=== PATIENT | male | born 1945 | race Hispanic/Latino ===

== ENCOUNTER 2018-02-04 16:30 | Emergency (ER) | payer MEDICARE ==
[2018-02-04] MEDS ORDERED: ATIVAN IV ONE (17:14)
--- NOTE | 2018-02-04 17:19 | Emergency Department Report ---
ED Altered Mental Status HPI - General Chief Complaint: Altered Mental Status Stated Complaint: LEWY/DEPPRESSION/VIOLENCE Time Seen by Provider: 02/04/18 16:50 Source: family Mode of arrival: Ambulatory Limitations: Altered Mental Status - History of Present Illness Initial Comments: 72-year-old man with history of progressive Alzheimer's disease over the past several years, is brought in for evaluation of altered mental status, with recent first institutionalization at a memory care facility for progression of confusion, with placement in one facility approximately 10 days ago, lasting for about 7 days, and be removed because of increased confusion behavior, which is incompatible with acceptable standard for facility. Patient also had a fall , at that time, with injury to chest, and was evaluated twice several days ago at [facility], with concern for rib injury or chest injury, and had multiple CT scans, according to , who gives entirety of history, requiring intravenous sedation with lorazepam, does not recall that he had any brain scans. Patient has been placed at a [facility] several days ago, which can handle patients with behavioral problems, but patient's confusion has progressed from a point of verbal insults and increased confusion, to where he spontaneously took his shirt off at a common room in the facility today, and placed it over the head of another resident. was instructed to bring patient to the emergency department and to have mental health evaluation. is unclear about intent of referral for patient here other than decreasing behavior, and possibly for alterations of medications. is not aware of any falls, and all exams and [facility] several days ago were unremarkable. Current medication list shows Namenda, Lexapro, gabapentin, pravastatin, amlodipine. reports that patient had previously been on clonazepam, 0.25 to 0.5 mg TID prn. But this had been discontinued at the request of the previous emergency facility visit several days ago, and does not believe that he has been on clonazepam since that time. - Related Data Previous Rx's Medication Instructions Recorded Last Taken Type clonazePAM [Clonazepam] 0.5 mg PO TID PRN #90 tablet 02/04/18 Unknown Rx Allergies Allergy/AdvReac Type Severity Reaction Status Date / Time No Known Allergies Allergy Verified 02/04/18 17:50 ED Review of Systems ROS: Stated complaint: LEWY/DEPPRESSION/VIOLENCE Other details as noted in HPI Comment: Unobtainable due to pts medical conditions Constitutional: denies: chills, fever Cardiovascular: denies: chest pain Gastrointestinal: denies: abdominal pain ED Past Medical Hx - Past Medical History Previous Medical History?: Yes Hx Hypertension: Yes Additional medical history: Dementia - Surgical History Past Surgical History?: No - Social History Smoking Status: Never Smoker Substance Use Type: None - Medications Home Medications: Home Medications Medication Instructions Recorded Confirmed Last Taken Type clonazePAM [Clonazepam] 0.5 mg PO TID PRN #90 tablet 02/04/18 Unknown Rx ED Physical Exam - General Limitations: Altered Mental Status General appearance: alert, other (confused, mildly agitated secondary to confusion, not aggressive or abusive) - Head Head exam: Present: atraumatic, normocephalic, other (nontender) - Eye Eye exam: Present: PERRL - ENT ENT exam: Present: mucous membranes moist - Neck Neck exam: Present: normal inspection, full ROM. Absent: tenderness - Respiratory Respiratory exam: Present: normal lung sounds bilaterally. Absent: respiratory distress, wheezes, rales, rhonchi, chest wall tenderness (left lower chest wall , area of prior injury and concern, nontender, no ecchymosis) - Cardiovascular Cardiovascular Exam: Present: regular rate, normal rhythm, normal heart sounds - GI/Abdominal GI/Abdominal exam: Present: soft, normal bowel sounds. Absent: tenderness, guarding, rebound - Rectal Rectal exam: Present: deferred - Extremities Exam Extremities exam: Present: normal inspection, full ROM, other (contusion left posterior elbow, no bony defect, no deformity, full range of motion). Absent: tenderness - Neurological Exam Neurological exam: Present: alert, altered (awake and alert, responds to name, but grossly confused otherwise). Absent: motor sensory deficit - Psychiatric Psychiatric exam: Present: agitated (confused) - Skin Skin exam: Present: warm, dry, intact ED Course Vital Signs 02/04/18 16:34 Temperature 37.1 C Pulse Rate 96 H Respiratory 18 Rate Blood Pressure 106/40 O2 Sat by Pulse 97 Oximetry - Reevaluation(s) Reevaluation #1: 02/04/18 20:41 patient became confused, agitated and combative at attempts to draw blood and establish IV for CT scan, required sedation with Geodon. Patient resting comfortably after sedation, breathing easily. CT scan finding negative acute trauma or intracranial injury. Patient evaluated by mental health team, felt to have organic condition as primary cause for symptoms, which is my impression as well, and is not a candidate for 1013 commitment, as his condition will not materially change, even with psychiatric assessment and treatment. - Lab Data Result diagrams: 02/04/18 17:30 02/04/18 17:30 Lab Results 02/04/18 02/04/18 02/04/18 Range/Units 17:30 17:30 17:30 WBC 5.6 (4.5-11.0) K/mm3 RBC 5.00 (3.65-5.03) M/mm3 Hgb 14.4 (11.8-15.2) gm/dl Hct 42.4 (35.5-45.6) % MCV 85 (84-94) fl MCH 29 (28-32) pg MCHC 34 (32-34) % RDW 15.4 H (13.2-15.2) % Plt Count 304 (140-440) K/mm3 Lymph % (Auto) 35.8 H (13.4-35.0) % Pennington % (Auto) 10.7 H (0.0-7.3) % Eos % (Auto) 2.5 (0.0-4.3) % Baso % (Auto) 0.6 (0.0-1.8) % Lymph # 2.0 (1.2-5.4) K/mm3 Pennington # 0.6 (0.0-0.8) K/mm3 Eos # 0.1 (0.0-0.4) K/mm3 Baso # 0.0 (0.0-0.1) K/mm3 Seg Neutrophils % 50.4 (40.0-70.0) % Seg Neutrophils # 2.8 (1.8-7.7) K/mm3 PT 13.6 (12.2-14.9) Sec. INR 0.99 (0.87-1.13) Sodium 144 (137-145) mmol/L Potassium 3.7 (3.6-5.0) mmol/L Chloride 106.6 (98-107) mmol/L Carbon Dioxide 23 (22-30) mmol/L Anion Gap 18 mmol/L BUN 12 (9-20) mg/dL Creatinine 0.8 (0.8-1.5) mg/dL Estimated GFR > 60 ml/min BUN/Creatinine Ratio 15 % Glucose 101 H (75-100) mg/dL Lactic Acid (0.7-2.0) mmol/L Calcium 9.3 (8.4-10.2) mg/dL Total Bilirubin 0.40 (0.1-1.2) mg/dL AST 24 (5-40) units/L ALT 14 (7-56) units/L Alkaline Phosphatase 64 (35-129) units/L Ammonia (25-60) umol/L Total Creatine Kinase 385 H (55-170) units/L Troponin T < 0.010 (0.00-0.029) ng/mL Total Protein 6.8 (6.3-8.2) g/dL Albumin 4.1 (3.9-5) g/dL Albumin/Globulin Ratio 1.5 % Salicylates (2.8-20.0) mg/dL Acetaminophen (10.0-30.0) ug/mL 02/04/18 02/04/18 02/04/18 Range/Units 17:30 17:30 17:30 WBC (4.5-11.0) K/mm3 RBC (3.65-5.03) M/mm3 Hgb (11.8-15.2) gm/dl Hct (35.5-45.6) % MCV (84-94) fl MCH (28-32) pg MCHC (32-34) % RDW (13.2-15.2) % Plt Count (140-440) K/mm3 Lymph % (Auto) (13.4-35.0) % Penning[place] % (Auto) (0.0-7.3) % Eos % (Auto) (0.0-4.3) % Baso % (Auto) (0.0-1.8) % Lymph # (1.2-5.4) K/mm3 Pennington # (0.0-0.8) K/mm3 Eos # (0.0-0.4) K/mm3 Baso # (0.0-0.1) K/mm3 Seg Neutrophils % (40.0-70.0) % Seg Neutrophils # (1.8-7.7) K/mm3 PT (12.2-14.9) Sec. INR (0.87-1.13) Sodium (137-145) mmol/L Potassium (3.6-5.0) mmol/L Chloride (98-107) mmol/L Carbon Dioxide (22-30) mmol/L Anion Gap mmol/L BUN (9-20) mg/dL Creatinine (0.8-1.5) mg/dL Estimated GFR ml/min BUN/Creatinine Ratio % Glucose (75-100) mg/dL Lactic Acid 0.80 (0.7-2.0) mmol/L Calcium (8.4-10.2) mg/dL Total Bilirubin (0.1-1.2) mg/dL AST (5-40) units/L ALT (7-56) units/L Alkaline Phosphatase (35-129) units/L Ammonia 32.0 (25-60) umol/L Total Creatine Kinase (55-170) units/L Troponin T (0.00-0.029) ng/mL Total Protein (6.3-8.2) g/dL Albumin (3.9-5) g/dL Albumin/Globulin Ratio % Salicylates < 0.3 L (2.8-20.0) mg/dL Acetaminophen (10.0-30.0) ug/mL 02/04/18 Range/Units 17:30 WBC (4.5-11.0) K/mm3 RBC (3.65-5.03) M/mm3 Hgb (11.8-15.2) gm/dl Hct (35.5-45.6) % MCV (84-94) fl MCH (28-32) pg MCHC (32-34) % RDW (13.2-15.2) % Plt Count (140-440) K/mm3 Lymph % (Auto) (13.4-35.0) % Penning[place] % (Auto) (0.0-7.3) % Eos % (Auto) (0.0-4.3) % Baso % (Auto) (0.0-1.8) % Lymph # (1.2-5.4) K/mm3 Penning[place] # (0.0-0.8) K/mm3 Eos # (0.0-0.4) K/mm3 Baso # (0.0-0.1) K/mm3 Seg Neutrophils % (40.0-70.0) % Seg Neutrophils # (1.8-7.7) K/mm3 PT (12.2-14.9) Sec. INR (0.87-1.13) Sodium (137-145) mmol/L Potassium (3.6-5.0) mmol/L Chloride (98-107) mmol/L Carbon Dioxide (22-30) mmol/L Anion Gap mmol/L BUN (9-20) mg/dL Creatinine (0.8-1.5) mg/dL Estimated GFR ml/min BUN/Creatinine Ratio % Glucose (75-100) mg/dL Lactic Acid (0.7-2.0) mmol/L Calcium (8.4-10.2) mg/dL Total Bilirubin (0.1-1.2) mg/dL AST (5-40) units/L ALT (7-56) units/L Alkaline Phosphatase (35-129) units/L Ammonia (25-60) umol/L Total Creatine Kinase (55-170) units/L Troponin T (0.00-0.029) ng/mL Total Protein (6.3-8.2) g/dL Albumin (3.9-5) g/dL Albumin/Globulin Ratio % Salicylates (2.8-20.0) mg/dL Acetaminophen < 5.0 L (10.0-30.0) ug/mL - Radiology Data Radiology results: report reviewed CT scan brain shows no acute intracranial pathology, with no evidence of acute stroke, no skull trauma, no intracranial hemorrhage, fluid accumulation or mass effect. 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 - Medical Decision Making Alzheimer's patient has had deterioration of behavior over the past months gradually, and more progressive since institutional placement. He has not had any major medication changes, and has had clonazepam recently withdrawn, and reports that prior physician evaluation was worrisome for sundown syndrome. I believe the patient's had exacerbation of confusion because of alteration of his routine environments, and that his new home placement may be the more proximal cause of his agitation and confusion, which is exhibited by his meandering and agitated confusion here in the emergency department. Mental health evaluation essentially concurs, believing the patient's symptoms are primarily referable to his Alzheimer's disease, which is a permanent condition, and does not improve with psychiatric treatment. Patient will be discharged back to his memory care facility. Patient's primary immediate concern is adequate sedation in order that he is not a threat to himself or others in his institutional environment at his residence, but this is not an immediate concern of the emergency department, and as a matter that is best left to his primary treating physician. However, patient has required sedation on an immediate basis because of agitation and confusion during lab draw, and will be observed until he has regained consciousness and can be transferred back to his facility. In addition, I do not understand withdrawal of patient's clonazepam treatment, which I feel is preferred method of sedation for patients with cognitive impairment. Given that he was previously withdrawn from this, I will rewrite a prescription for patient to take, but any additional alterations of his medications for control of his behavior and level of sedation are best managed by his primary care physician, and this should be arranged by the facility directly. reports the patient has a follow-up visit in 2 days, and we discussed care management decisions to be addressed at that time. Critical care attestation.: If time is entered above; I have spent that time in minutes in the direct care of this critically ill patient, excluding procedure time. ED Disposition Clinical Impression: Psychomotor agitation Alzheimer's dementia with behavioral disturbance Qualifiers: Alzheimer's disease onset: unspecified onset Qualified Code(s): G30.9 - Alzheimer's disease, unspecified; F02.81 - Dementia in other diseases classified elsewhere with behavioral disturbance Disposition: DC-01 TO HOME OR SELFCARE Is pt being admited?: No Does the pt Need Aspirin: No Condition: Stable Additional Instructions: Mr. Pitt has been evaluated for agitation and confusion, and is medically stable, with no findings suggestive of an underlying organic or traumatic basis for his confusion. CT scan of head and neck were negative for acute pathology with no signs of trauma, fracture, or hemorrhage. Laboratory and physical evaluation have been unremarkable today, indicating no signs of metabolic abnormality or signs of infection. Recent situational and environmental changes are more likely causes of patient' s increasing level of confusion, and this is best managed by adjustment of medications for his level of anxiety and confusion by his primary care physician. reports the patient had been previously withdrawn from clonazepam, but we feel that this is a good choice of medication for sedation and behavior control of patient's with cognitive impairments, such as expressed in this patient with Alzheimer's disease. As such, we are reinstituting clonazepam, 0.5 mg 3 times daily. Further adjustments in this medication and other medications for control of patient's behavior and level of sedation are best made by patient's primary care physician. Other care and medications are to be continued as before. Prescriptions: clonazePAM [Clonazepam] 0.5 mg PO TID PRN #90 tablet PRN Reason: Agitation Referrals: PRIMARY CARE, [Primary Care Provider] - 3-5 Days Time of Disposition: 20:52
[2018-02-04 17:47] LABS: Basophils % (Auto) 0.6 % (0.0-1.8); Eosinophils # (Auto) 0.1 K/mm3 (0.0-0.4); Eosinophils % (Auto) 2.5 % (0.0-4.3); Hematocrit 42.4 % (35.5-45.6); Hemoglobin 14.4 gm/dl (11.8-15.2); Lymphocytes % (Auto) 35.8 % (13.4-35.0); Mean Corpuscular HGB Conc 34 % (32-34); Mean Corpuscular Hemoglobin 29 pg (28-32); Mean Corpuscular Volume 85 fl (84-94); Monocytes # (Auto) 0.6 K/mm3 (0.0-0.8); Monocytes % (Auto) 10.7 % (0.0-7.3); Platelet Count 304 K/mm3 (140-440); Red Cell Distribution Width 15.4 % (13.2-15.2)
[2018-02-04] MEDS ORDERED: GEODON IM ONE ×2 (17:52→18:00)
[2018-02-04 18:05] LABS: Alanine Aminotransferase 14 units/L (7-56); Albumin 4.1 g/dL (3.9-5); BUN/Creatinine Ratio 15; Blood Urea Nitrogen 12 mg/dL (9-20); Calcium 9.3 mg/dL (8.4-10.2); Hemolysis Index 9
[2018-02-04 19:13] LABS: INR 0.99 (0.87-1.13)
--- NOTE | 2018-02-04 19:45 | Cat Scan Report ---
FINAL REPORT EXAM: CT HEAD/BRAIN WO CON HISTORY: Altered Mental Status TECHNIQUE: Contiguous axial images of the head were obtained without the use of intravenous contrast. PRIORS: None. FINDINGS: The cerebral hemispheres are without focal lesions. There is no evidence of acute infarct or intracranial hemorrhage. There is no mass lesion or mass effect. There are no abnormal extra-axial fluid collections. The ventricles and sulci are prominent consistent with generalized loss of brain substance, appropriate for age. There is deep white matter lucency consistent with chronic microvascular ischemic disease. The visualized skull and orbits are unremarkable. The visualized paranasal sinuses are clear. IMPRESSION: 1. No evidence of acute infarct or intracranial hemorrhage. 2. White matter lucency consistent with chronic microvascular ischemic disease.
--- NOTE | 2018-02-04 19:55 | Cat Scan Report ---
FINAL REPORT EXAM: CT CERVICAL SPINE WO CON HISTORY: confused, altered, Alzheimers, eval for injury TECHNIQUE: Helical axial CT imaging of the cervical spine. Images are reconstructed in the sagittal and coronal planes. PRIORS: None. FINDINGS: The vertebral bodies are normal in height. There is no evidence of fracture or subluxation. There is multilevel degenerative disc and facet disease. There is atherosclerotic calcification in the carotid bulbs and bilateral proximal ICAs. The paraspinous soft tissues are unremarkable. IMPRESSION: No evidence of acute fracture or subluxation. Multilevel degenerative disc disease Carotid artery atherosclerotic disease
[2018-02-05 01:18] VITALS: BP 112/70
== END 2018-02-05 01:18 | disposition home or self-care (01) ==
LOC: ED 16:30
DX: R45.1 Restlessness and agitation (principal); G30.9 Alzheimer's disease, unspecified; F02.81 Dementia in other diseases classified elsewhere, unspecified severity, with behavioral disturbance; S50.02XA Contusion of left elbow, initial encounter; R07.89 Other chest pain; I10 Essential (primary) hypertension; W18.30XA Fall on same level, unspecified, initial encounter; Y93.89 Activity, other specified; Y92.89 Other specified places as the place of occurrence of the external cause; Y99.8 Other external cause status
CPT/HCPCS: 36415; 70450; 72125; 80053; 82140; 82550; 84484; 85025; 85610; 96372; 99284; G0480; J3486; 80320; J2060